=== PATIENT | male | born 1990 | race Caucasian/White ===

== ENCOUNTER → 2016-11-12 | Outpatient (REF) | payer OTHER | LOC: M SMT 17:01 | PROVIDERS: ATTEND Nurse Practitioner Women's Health | DX: R39.12 Poor urinary stream (principal) ==

== ENCOUNTER → 2017-01-02 | Outpatient (CLI) | payer OTHER ==
--- NOTE | 2017-01-02 16:22 | REP ---
Scrotal ultrasound, stat request for left testicular pain: There are no comparison studies. The testes are normal size. The right testis measures 4.6 x 2.3 x 3.1 cm. The left testis measures 4.2 x 2.2 x 3.0 cm. The testicular parenchyma is homogeneous bilaterally. There are no testicular masses. There is vascular flow in both testes with the Doppler resistive index of the intraparenchymal arteries on the right measuring 0.58 on the left 0.45. The right epididymal head measures 11 mm and left epididymal head measures 10 mm. These are normal size. No epididymal head cysts are identified. With Doppler and color Doppler ultrasound bilateral varicoceles are identified. There are no hydroceles. Impression: Bilateral varicoceles. No testicular masses. There is vascular flow in both testes. No hydrocele. Right and left epididymi are unremarkable. Signed by Ronnell Mustafa MD 01/02/2017 04:13 P
== END ==
LOC: M RAD 15:38
PROVIDERS: ATTEND Physician Assistant
DX: N50.812 Left testicular pain (principal)

== ENCOUNTER → 2017-01-04 | Outpatient (REF) | payer OTHER | LOC: M LAB REF 12:10 | PROVIDERS: ATTEND Physician Assistant | DX: R30.0 Dysuria (principal) ==

== ENCOUNTER 2017-03-22 02:47 | Inpatient (IN) | payer OTHER ==
[2017-03-22] VITALS (29 sets, daily range): BP systolic 94–141; BP diastolic 50–78; O2SAT 98
[~2017-03-22] VITALS: Ht 177.8 cm; Wt 140.7 kg
[2017-03-22] MEDS ORDERED: MIDAZOLAM INJ 5 MG/ML VIAL (J2250) As Ordered ONE ×5 (02:59→04:21)
[2017-03-22] MEDS ORDERED: ETOMIDATE INJ 20MG/10ML VIAL IV STA (03:00)
[2017-03-22] MEDS ORDERED: SUCCINYLCHOLINE INJ 200 MG/10 ML VIAL (J0330) IV STA (03:00)
[2017-03-22] MEDS ORDERED: MIDAZOLAM INJ 2 MG/2 ML VIAL (J2250) IV STA ×5 (03:05→04:23)
[2017-03-22] MEDS ORDERED: CHARCOAL ACTIVATED LIQUID 25 GM/120 ML BTL PO ONE (03:15)
[2017-03-22] MEDS ORDERED: MIDAZOLAM HCL 100 MG in D5W 80 ML IV SCH ×2 (03:15→06:30)
[2017-03-22] MEDS ORDERED: NS 1,000 ML IV ONE (03:15)
[2017-03-22] MEDS ORDERED: MIDAZOLAM HCL 50 MG in D5W 40 ML IV SCH (03:15)
[2017-03-22 03:18] LABS: MEAN CORPUSCULAR HEMOGLOBIN 29.2 pg (27.0-33.0); MEAN CORPUSCULAR VOLUME 83.4 fl (80.0-96.0); PLATELET COUNT, AUTOMATED 265 k/mm3 (150-450); RED CELL DISTRIBUTION WIDTH 12.6 % (11.5-14.5); WHITE BLOOD COUNT 11.6 K/mm3 (4.0-10.0)
[2017-03-22 03:19] LABS: BASO % 0.3 % (0.0-1.0); EOS % 0.4 % (0.0-3.0); LARGE UNSTAINED CELL # 0.2 K/mm3 (0.0-0.4); LARGE UNSTAINED CELL % 1.7 % (0.0-4.0); LYMPH # 1.9 K/mm3 (1.5-6.5); MONO # 0.6 K/mm3 (0.0-0.8); MONO % 5.4 % (0.0-5.0); NEUTROPHILS # 8.8 K/mm3 (1.8-7.7); NEUTROPHILS % 76.2 % (36.0-66.0)
[2017-03-22] MEDS ORDERED: FUROSEMIDE 100 MG/10 ML VIAL (J1940) IV ONE (03:30)
[2017-03-22] MEDS ORDERED: VECURONIUM BROMIDE 10 MG VIAL IV STA ×3 (03:40→06:23)
[2017-03-22] MEDS: MIDAZOLAM HCL 100 MG in D5W 80 ML IV SCH ×2 (03:46→05:55)
[2017-03-22 03:50] LABS: ALBUMIN 4.1 GM/DL (3.2-5.2); ALBUMIN/GLOBULIN RATIO 1.14 (1.00-1.93); ALKALINE PHOSPHATASE 69 U/L (45-117); ALT/SGPT 28 U/L (12-78); ANION GAP 14 MEQ/L (8-16); AST/SGOT 13 U/L (15-37); BILIRUBIN,DIRECT < 0.1 MG/DL (0.0-0.2); BILIRUBIN,TOTAL 0.5 MG/DL (0.2-1.0); BLOOD UREA NITROGEN 14 MG/DL (7-18); CALCIUM LEVEL 8.7 MG/DL (8.5-10.1); CARBON DIOXIDE LEVEL 22 MEQ/L (21-32); CHLORIDE LEVEL 98 MEQ/L (98-107); CREATININE FOR GFR 1.02 MG/DL (0.70-1.30); GLOMERULAR FILTRATION RATE > 60.0 (>60); GLUCOSE, FASTING 368 MG/DL (70-105); SODIUM LEVEL 134 MEQ/L (136-145); TOTAL PROTEIN 7.7 GM/DL (6.4-8.2)
[2017-03-22 04:08] LABS: ABG BASE EXCESS -5.2 (-2.0-2.0); ABG HCO3 24.4 MEQ/L (22.0-26.0); ABG STANDARD HCO3 20.3 MEQ/L (22.0-26.0); ABG TOTAL CO2 26.4 MEQ/L (22.0-29.0)
[2017-03-22 04:11] LABS: ABG PARTIAL PRESSURE CO2 64.4 mmHg (35.0-45.0); ABG pH (ARTERIAL) 7.197 UNITS (7.350-7.450)
[2017-03-22] MEDS ORDERED: VECURONIUM BROMIDE 10 MG VIAL As Ordered ONE (04:48)
[2017-03-22 05:53] LABS: ABG BASE EXCESS -6.3 (-2.0-2.0); ABG HCO3 20.5 MEQ/L (22.0-26.0); ABG PARTIAL PRESSURE CO2 45.3 mmHg (35.0-45.0); ABG PARTIAL PRESSURE O2 119.9 mmHg (75.0-100.0); ABG STANDARD HCO3 19.4 MEQ/L (22.0-26.0); ABG TOTAL CO2 21.9 MEQ/L (22.0-29.0); ABG pH (ARTERIAL) 7.274 UNITS (7.350-7.450)
[2017-03-22] MEDS ORDERED: GLUCOSE 4 GM CHEW TABLET PO PRN (06:00)
[2017-03-22] MEDS ORDERED: DEXTROSE 50% 50 ML SYRINGE IV PRN (06:00)
[2017-03-22] MEDS ORDERED: GLUCAGON FOR INJ 1 MG VIAL (J1610) SC PRN (06:00)
[2017-03-22] MEDS ORDERED: MIDAZOLAM INJ 2 MG/2 ML VIAL (J2250) IV PRN (06:00)
[2017-03-22] MEDS ORDERED: MORPHINE 2 MG/ML 1ML SYRINGE IV PRN (06:00)
[2017-03-22 06:36] LABS: METHADONE URINE NEGATIVE (NEGATIVE)
[2017-03-22] MEDS: PROPOFOL 1,000 MG in APPROPRIATE DILUENT 1 EA IV SCH ×12 (07:15→23:50)
[2017-03-22] MEDS: NS 1,000 ML IV SCH ×2 (07:16→21:01)
[2017-03-22] MEDS: HEPARIN SOD (PORCINE) 5000 UNITS/ML VIAL SC SCH ×3 (07:24→21:01)
[2017-03-22] MEDS: HumaLOG INSULIN (NovoLOG) PER UNIT SC SCH ×3 (07:24→18:05)
--- NOTE | 2017-03-22 07:42 | ECGEPIP ---
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
[2017-03-22 07:45] LABS: ABG BASE EXCESS -3.8 (-2.0-2.0); ABG HCO3 21.8 MEQ/L (22.0-26.0); ABG PARTIAL PRESSURE CO2 41.6 mmHg (35.0-45.0); ABG PARTIAL PRESSURE O2 150.8 mmHg (75.0-100.0); ABG STANDARD HCO3 21.4 MEQ/L (22.0-26.0); ABG TOTAL CO2 23.1 MEQ/L (22.0-29.0); ABG pH (ARTERIAL) 7.337 UNITS (7.350-7.450)
--- NOTE | 2017-03-22 07:49 | REP ---
Clinical: Endotracheal tube placement . Comparison: None . Findings: The mediastinum and cardiac silhouette are stable and within normal limits for portable technique. Endotracheal tube approximately 2.5 cm above the jovana. Nasogastric tube courses below left hemidiaphragm. The lung palacio are clear without acute consolidation, effusion, or pneumothorax. Skeletal structures are intact. Impression: No acute cardiopulmonary process appreciated. Signed by Shawn Elias MD 03/22/2017 07:41 A
[2017-03-22] MEDS: PANTOPRAZOLE 40MG INJ (PROTONIX) (C9113) IV SCH (08:42)
[2017-03-22] MEDS: CHLORHEXIDINE GLUCONATE 0.12 % 15ML UDC (PERIDEX ORAL RINSE) MT SCH ×2 (08:43→21:01)
[2017-03-22] MEDS ORDERED: SUCCINYLCHOLINE 100 MG/5 ML SYRINGE (J0330) ONE (09:32)
--- NOTE | 2017-03-22 09:51 | HPE ---
HISTORY AND PHYSICAL/CRITICAL CARE NOTE: DATE OF ADMISSION: 03/22/2017 at 06:00 a.m. I was called to the emergency department to evaluate this 26-year-old male who has ingested an unknown substance and suffered an overdose. He was brought by emergency medical services (EMS). It is unclear how he was found or by whom. On arrival to the emergency department assessment was performed and he was found obtunded with ineffective respiratory efforts. An endotracheal tube was placed and he required large doses of sedation and paralytics to achieve control of waxing and waning between obtundation and violent motor activity. This history according to the emergency room (ER) nursing. I spoke with his mother at bedside. He reported to her ingesting Ecstasy (MDMA) . He had been expressing depression and been speaking about suicide. She last saw him at 10-o'clock in the morning on 03/21/2017 and believes that he took the medication after that time. His only past medical history that she is aware of his diabetes mellitus and the patient follows with [facility] at the [facility]. On my arrival, the patient has been intubated and given large doses of sedation and benzodiazepine as well as paralytics and a dose of Lasix. He has also received a dose of activated charcoal and an endotracheal tube and orogastric tube have been placed. At bedside he is diaphoretic sedate, mechanically ventilated, temperature is 99.2, pulse rate 140, respirations 16/16 delivered, blood pressure 144/91. HEENT: His pupils are 4-6 mm bilaterally and reactive. He is diaphoretic. There is an endotracheal tube at 23 cm. Orogastric tube is in place. Heart: Sounds are regular. Rapid. Breath sounds are coarse clear. Abdomen is soft and obese. Extremities: Pulses are appreciable times four. There is some spasticity of the lower extremities. Difficult to assess given the medications he has received. Extensive diagnostic studies were reviewed. His white cell count is 11.6, hemoglobin 16, hematocrit 45, platelet count 265,000. Differential white cell count shows 76.2% neutrophils, 16 lymphocytes. Initial blood gas was obtained, which is felt to be venous, pH was 7.19, pCO2 64, pO2 was not reported. Subsequent arterial blood gas shows a pH of 7.27, [id number], pO2 119. Electrolytes were sodium 134, potassium 4.0, chloride 98, CO2 22, BUN 14, creatinine 1.02. Serum glucose is 368, calcium is 8.7 on an albumin of 4.1, bilirubin 0.5, AST 13 , ALT 28, CPK 107. TSH was performed and is 0.75. Urine toxicology showed salicylates 2.6 low, acetaminophen 2.0 low and Ethyl alcohol less than 0.003. Remaining screen at this point is pending. I have reviewed the chest x-ray image, there is no report at this time. He does show an elevation of the right hemidiaphragm. Endotracheal tube and oral gastric tube appear to be in good position. There are no obvious infiltrates. The primary problem requiring critical attention is substance overdose, possible suicide attempt. The toxidrome is consistent with MDMA and possible serotonin syndrome - neuromuscular and blood pressure abnormalities have responded to high-dose benzodiazepines and paralytics. His serum sodium is slightly low. Will continue to closely follow his liver enzymes and coagulation studies. Acute respiratory failure. Will initiate mechanical ventilation and target a pH of better than 7.3. Repeat arterial blood gases are pending. Hyperglycemia. Will begin with fingerstick blood sugars and coverage. The patient is likely to require some long-acting insulin given his underlying diabetic state. DVT prophylaxis will be addressed with sequential hose and subcutaneous heparin. Ulcer prophylaxis is felt to be appropriate . Given his risks, I will initiate Protonix. I reviewed the case with the emergency room physician as well as the patient's mother at bedside. Will facilitate his transfer to the intensive care unit at this point and I will update the nursing staff there. His condition is critical. Prognosis is guarded. 1 hour and 37 minutes was spent in the provision of bedside critical care and coordination. Edited: [email or web address] 03/25/2017 1024 MTDD
--- NOTE | 2017-03-22 10:03 | RO ---
DATE OF PROCEDURE: 03/22/2017 PREOPERATIVE DIAGNOSIS: Hypovolemia. POSTOPERATIVE DIAGNOSIS: Hypovolemia. PROCEDURE PERFORMED: Right subclavian CVP placement. SURGEON: Damir Myers DO COURTESY CLERK: ANESTHESIA: DESCRIPTION OF PROCEDURE: The patient was seen in the intensive care unit intubated, mechanically ventilated, critically ill. The procedure was reviewed with the patient's family at bedside including indications, contraindications, risks and potential benefits. An informed consent was obtained and placed in the chart. The patient was placed in the supine position. The skin overlying the right subclavian vein was prepped with Chloraprep, draped in a sterile fashion. A 25-gauge needle was used to raise a skin wheal of 1% lidocaine. Thereafter, a 17-gauge introducer needle was placed in through the skin and into the right subclavian vein. Venous blood was obtained. Vascular tip guidewire was advanced. A small incision made adjacent to the guidewire and a triple-lumen catheter placed over the guidewire to a distance of 18 cm. The catheter was sewn in place and a sterile dressing applied. A postprocedure chest x-ray is pending. There were no apparent complications.
--- NOTE | 2017-03-22 10:14 | REP ---
Clinical: line placement. Comparison: 03/22/2017. Findings: ETT and NGT in satisfactory position. Right subclavian catheter in the SVC. The mediastinum and cardiac silhouette are stable and within normal limits for portable technique. The lung palacio are clear without acute consolidation, effusion, or pneumothorax. Skeletal structures are intact. Impression: Lines and tubes in satisfactory position. No acute cardiopulmonary process appreciated. Signed by Shawn Elias MD 03/22/2017 10:05 A
--- NOTE | 2017-03-22 12:19 | RO ---
DATE OF PROCEDURE: 03/22/2017 TIME: 10:20 a.m. PREOPERATIVE DIAGNOSIS: Hypoxia. POSTOPERATIVE DIAGNOSIS: PROCEDURE: Arterial line placement. SURGEON/RESIDENT DOCTOR: Izaiah Lemus DO VEGETABLE SPECKER/ATTENDING DOCTOR: Damir Myers DO ANESTHESIA: Procedure was discussed with the patient's mother and two sisters. Written consent was obtained. The patient's mother and sisters were aware of the risks and benefits of the procedure. After a time out was completed verifying the correct patient, procedure and site position, eliseo's test was performed to ensure adequate perfusion. The patient's left wrist was prepped and draped in a sterile fashion. 1% lidocaine was used to anesthetize the area. An 18 gauge arterial line was introduced into the left radial artery. The catheter was threaded over Guidewire through Seldinger's procedure. The needle was removed and appropriate pulsatile blood returned. The catheter was then sutured in place to the skin and a sterile dressing applied. Perfusion to the extremity distal to the point of catheter insertion was checked and found to be adequate. Dr. Myers was present for the entire procedure. ESTIMATED BLOOD LOSS: Minimal. Patient tolerated the procedure well and there were no complications, condition was unchanged following the procedure. . MTDD
[2017-03-22 13:18] LABS: ALBUMIN 3.5 GM/DL (3.2-5.2); ANION GAP 10 MEQ/L (8-16); BLOOD UREA NITROGEN 12 MG/DL (7-18); CALCIUM LEVEL 8.3 MG/DL (8.5-10.1); CARBON DIOXIDE LEVEL 25 MEQ/L (21-32); CHLORIDE LEVEL 105 MEQ/L (98-107); CREATININE FOR GFR 0.92 MG/DL (0.70-1.30); GLOMERULAR FILTRATION RATE > 60.0 (>60); GLUCOSE, FASTING 327 MG/DL (70-105); POTASSIUM SERUM 4.3 MEQ/L (3.5-5.1); SODIUM LEVEL 140 MEQ/L (136-145)
[2017-03-22 19:36] LABS: ALBUMIN 3.6 GM/DL (3.2-5.2); ALKALINE PHOSPHATASE 52 U/L (45-117); ALT/SGPT 29 U/L (12-78); ANION GAP 11 MEQ/L (8-16); AST/SGOT 19 U/L (15-37); BILIRUBIN,TOTAL 0.5 MG/DL (0.2-1.0); BLOOD UREA NITROGEN 9 MG/DL (7-18); CARBON DIOXIDE LEVEL 24 MEQ/L (21-32); CHLORIDE LEVEL 106 MEQ/L (98-107); CHOLESTEROL LEVEL 241 MG/DL (< 200); CREATININE FOR GFR 0.88 MG/DL (0.70-1.30); GLOMERULAR FILTRATION RATE > 60.0 (>60); GLUCOSE, FASTING 276 MG/DL (70-105); PHOSPHORUS LEVEL 3.3 MG/DL (2.5-4.9); POTASSIUM SERUM 3.9 MEQ/L (3.5-5.1); SODIUM LEVEL 141 MEQ/L (136-145); TOTAL PROTEIN 6.6 GM/DL (6.4-8.2); TRIGLYCERIDES LEVEL 933 MG/DL (<150)
[2017-03-23] VITALS (27 sets, daily range): BP systolic 78–195; BP diastolic 35–99; O2SAT 97
[2017-03-23] MEDS: HumaLOG INSULIN (NovoLOG) PER UNIT SC SCH ×4 (01:04→17:46)
[2017-03-23] MEDS: PROPOFOL 1,000 MG in APPROPRIATE DILUENT 1 EA IV SCH ×4 (01:17→07:00)
[2017-03-23 05:41] LABS: BASO % 0.4 % (0.0-1.0); EOS # 0.2 K/mm3 (0.0-0.50); EOS % 2.5 % (0.0-3.0); LARGE UNSTAINED CELL # 0.1 K/mm3 (0.0-0.4); LARGE UNSTAINED CELL % 1.2 % (0.0-4.0); LYMPH # 1.8 K/mm3 (1.5-6.5); LYMPH % 20.6 % (24.0-44.0); MEAN CORPUSCULAR HEMOGLOBIN 29.8 pg (27.0-33.0); MEAN CORPUSCULAR HGB CONC 35.2 g/dl (32.0-36.5); MEAN CORPUSCULAR VOLUME 84.7 fl (80.0-96.0); MONO # 0.5 K/mm3 (0.0-0.8); NEUTROPHILS # 5.7 K/mm3 (1.8-7.7); NEUTROPHILS % 69.2 % (36.0-66.0); PLATELET COUNT, AUTOMATED 225 k/mm3 (150-450); RED CELL DISTRIBUTION WIDTH 12.6 % (11.5-14.5); WHITE BLOOD COUNT 8.3 K/mm3 (4.0-10.0)
[2017-03-23 05:50] LABS: INR 1.06
[2017-03-23 05:56] LABS: ALBUMIN 3.4 GM/DL (3.2-5.2); ALKALINE PHOSPHATASE 49 U/L (45-117); ALT/SGPT 28 U/L (12-78); ANION GAP 8 MEQ/L (8-16); AST/SGOT 19 U/L (15-37); BILIRUBIN,TOTAL 0.6 MG/DL (0.2-1.0); BLOOD UREA NITROGEN 7 MG/DL (7-18); CALCIUM LEVEL 7.9 MG/DL (8.5-10.1); CARBON DIOXIDE LEVEL 27 MEQ/L (21-32); CHLORIDE LEVEL 107 MEQ/L (98-107); CHOLESTEROL LEVEL 231 MG/DL (< 200); CREATININE FOR GFR 0.72 MG/DL (0.70-1.30); GLOMERULAR FILTRATION RATE > 60.0 (>60); GLUCOSE, FASTING 217 MG/DL (70-105); PHOSPHORUS LEVEL 2.7 MG/DL (2.5-4.9); POTASSIUM SERUM 3.6 MEQ/L (3.5-5.1); SODIUM LEVEL 142 MEQ/L (136-145); TOTAL PROTEIN 6.5 GM/DL (6.4-8.2); TRIGLYCERIDES LEVEL 865 MG/DL (<150)
[2017-03-23] MEDS: HEPARIN SOD (PORCINE) 5000 UNITS/ML VIAL SC SCH ×3 (06:04→21:44)
[2017-03-23 06:08] LABS: ABG BASE EXCESS 1.4 (-2.0-2.0); ABG HCO3 27.1 MEQ/L (22.0-26.0); ABG PARTIAL PRESSURE CO2 46.8 mmHg (35.0-45.0); ABG PARTIAL PRESSURE O2 82.9 mmHg (75.0-100.0); ABG STANDARD HCO3 25.7 MEQ/L (22.0-26.0); ABG TOTAL CO2 28.5 MEQ/L (22.0-29.0)
--- NOTE | 2017-03-23 07:12 | REP ---
Clinical: Endotracheal tube positioning. Comparison: 03/22/2017. Findings: Endotracheal tube is approximately 2.2 cm above the jovana. Nasogastric tube courses below left hemidiaphragm. Right subclavian catheter with tip in the SVC. Mediastinum and cardiac silhouette are stable and within normal limits. Lung palacio are relatively clear without focal consolidation, effusion, or pneumothorax. Skeletal structures intact. Impression: Lines and tubes in satisfactory position. No acute cardiopulmonary process appreciated. Signed by Shawn Elias MD 03/23/2017 07:03 A
[2017-03-23] MEDS: PANTOPRAZOLE 40MG INJ (PROTONIX) (C9113) IV SCH (10:11)
[2017-03-23] MEDS: LEVEMIR (INSULIN DETEMIR) 1 UNITS/0.01ML SC SCH (10:12)
--- NOTE | 2017-03-23 10:12 | CCN ---
DATE: 03/23/2017 CRITICAL CARE NOTE The patient is seen in the intensive care unit, intubated, mechanically ventilated, critically ill. This is hospital day #2, intensive care unit (ICU) day #2. His temperature is 98.4, pulse rate 96, respirations 20, blood pressure 113/57. Intake and output for the past 24 hours: 1989 in and 1360 out; since midnight, 1062 in and 825 out. At bedside, he is sedate. Orogastric and endotracheal tubes are in good position. Neck is supple. No meningismus. There is a right subclavian CVP, site clean. Heart: Sounds regular without appreciable murmur. Breath sounds mildly diminished in the bases, otherwise clear. Abdomen: Soft. Extremities: No edema. Pulses times four. Left radial arterial line site clean. DIAGNOSTIC STUDIES: Chest x-ray shows tubes and lines in good position. Sodium 142, potassium 3.6, chloride 107, CO2 27, BUN 7, creatinine 0.72, glucose 217, white cell count 8.3, hemoglobin 14, hematocrit 39, platelet count 228, CPK 167, AST 19, ALT 28. PT 1 1.06, PTT 25. Arterial blood gases show a pH of 7.38, pCO2 46, pO2 82; this on assist control mode of ventilation, 440 tidal volume, rate 16, PEEP of 5, FiO2 0.4. On medications review, he is receiving propofol infusion, subcutaneous heparin, Protonix. The primary problem requiring critical attention is acute respiratory failure. We will perform a sedation vacation this morning and proceed toward weaning pending his response. Will also obtain ventilatory mechanics. Substance overdose. History suggests the patient consumed ecstasy (MDMA). His clinical presentation was consistent with this with features of serotonin syndrome as well. Toxicology was positive for amphetamines, benzodiazepines, cannabinoids. It is unclear whether this ingestion was part of a suicide attempt. Psychiatric evaluation will be necessary. He does not appear to have suffered any of the multiple complications of this type of ingestion. Close monitoring will continue. Glycemic control is borderline. Will continue with fingerstick blood sugars and coverage. Long-acting insulin will likely be necessary when he is given nutritional supplement. Nutritional support. If the patient does not wean, will begin tube feedings. If he does, we are going to begin a controlled diet. Deep vein thrombosis (DVT) prophylaxis is in place with subcutaneous heparin. Ulcer prophylaxis in place with proton pump inhibitor (PPI). The patient's mother is at bedside and has been updated on his condition, which remains critical. Prognosis is guarded. 58 minutes was spent in the provision of bedside critical care and coordination, exclusive of any procedure time.
[2017-03-23] MEDS: NS 1,000 ML IV SCH (12:17)
[2017-03-23] MEDS ORDERED: HumaLOG INSULIN (NovoLOG) PER UNIT SC SCH (21:00)
[2017-03-24] VITALS: BP_SYST 139; BP_SYST 181; BP_DIAS 73; BP_DIAS 92
[2017-03-24 04:00] VITALS: BP_SYST 128; BP_SYST 162; BP_DIAS 102; BP_DIAS 94
[2017-03-24] MEDS: HEPARIN SOD (PORCINE) 5000 UNITS/ML VIAL SC SCH ×2 (05:21→12:33)
[2017-03-24 05:52] LABS: BASO % 0.4 % (0.0-1.0); EOS # 0.2 K/mm3 (0.0-0.50); EOS % 2.4 % (0.0-3.0); LARGE UNSTAINED CELL # 0.1 K/mm3 (0.0-0.4); LARGE UNSTAINED CELL % 1.3 % (0.0-4.0); LYMPH # 1.6 K/mm3 (1.5-6.5); LYMPH % 20.3 % (24.0-44.0); MEAN CORPUSCULAR HEMOGLOBIN 29.7 pg (27.0-33.0); MEAN CORPUSCULAR HGB CONC 35.5 g/dl (32.0-36.5); MEAN CORPUSCULAR VOLUME 83.5 fl (80.0-96.0); MONO # 0.4 K/mm3 (0.0-0.8); NEUTROPHILS % 69.6 % (36.0-66.0); PLATELET COUNT, AUTOMATED 193 k/mm3 (150-450); RED CELL DISTRIBUTION WIDTH 12.4 % (11.5-14.5); WHITE BLOOD COUNT 7.2 K/mm3 (4.0-10.0)
[2017-03-24 05:54] LABS: INR 0.99
[2017-03-24 06:03] LABS: ABG BASE EXCESS -1.8 (-2.0-2.0); ABG HCO3 21.5 MEQ/L (22.0-26.0); ABG PARTIAL PRESSURE CO2 32.3 mmHg (35.0-45.0); ABG PARTIAL PRESSURE O2 100.7 mmHg (75.0-100.0); ABG TOTAL CO2 22.5 MEQ/L (22.0-29.0); ABG pH (ARTERIAL) 7.441 UNITS (7.350-7.450)
[2017-03-24 06:23] LABS: ALBUMIN 2.9 GM/DL (3.2-5.2); ALBUMIN/GLOBULIN RATIO 0.94 (1.00-1.93); ALKALINE PHOSPHATASE 51 U/L (45-117); ALT/SGPT 22 U/L (12-78); ANION GAP 7 MEQ/L (8-16); AST/SGOT 16 U/L (15-37); BILIRUBIN,TOTAL 0.7 MG/DL (0.2-1.0); BLOOD UREA NITROGEN 7 MG/DL (7-18); CALCIUM LEVEL 7.7 MG/DL (8.5-10.1); CARBON DIOXIDE LEVEL 27 MEQ/L (21-32); CHLORIDE LEVEL 104 MEQ/L (98-107); CHOLESTEROL LEVEL 196 MG/DL (< 200); CREATININE FOR GFR 0.59 MG/DL (0.70-1.30); GLOMERULAR FILTRATION RATE > 60.0 (>60); GLUCOSE, FASTING 198 MG/DL (70-105); PHOSPHORUS LEVEL 3.1 MG/DL (2.5-4.9); POTASSIUM SERUM 3.4 MEQ/L (3.5-5.1); SODIUM LEVEL 138 MEQ/L (136-145); TRIGLYCERIDES LEVEL 620 MG/DL (<150)
[2017-03-24 07:45] VITALS: BP 125/118
[2017-03-24 08:00] VITALS: BP 128/120
[2017-03-24 08:05] VITALS: BP_SYST 122; BP_SYST 138; BP_DIAS 113; BP_DIAS 74
[2017-03-24] MEDS: PANTOPRAZOLE 40MG INJ (PROTONIX) (C9113) IV SCH (08:14)
[2017-03-24] MEDS: NS 1,000 ML IV SCH (08:14)
[2017-03-24] MEDS: LEVEMIR (INSULIN DETEMIR) 1 UNITS/0.01ML SC SCH (08:14)
[2017-03-24] MEDS: HumaLOG INSULIN (NovoLOG) PER UNIT SC SCH ×2 (08:15→12:33)
--- NOTE | 2017-03-24 08:47 | REP ---
Clinical: Status post extubation. Comparison: 03/23/2017. Findings: Endotracheal tube and nasogastric tube have been removed. Right subclavian catheter with tip in the SVC remains stable. Mediastinum and cardiac silhouette unchanged and normal for portable technique. Lung palacio without focal consolidation, effusion, or pneumothorax. Skeletal structures intact. Impression: No acute cardiopulmonary process or focal consolidation appreciated. Signed by Shawn Elias MD 03/24/2017 08:34 A
[2017-03-24] MEDS ORDERED: POTASSIUM CHLORIDE 10 MEQ SR TABLET PO ONE (10:00)
[2017-03-24 10:20] LABS: T UPTAKE 37 % (33-40); THYROXINE (T4) 8.3 UG/DL (4.5-12.0)
[2017-03-24] MEDS ORDERED: INSUHUMDS SC (11:19)
[2017-03-24] MEDS ORDERED: INSUDET SC (11:19)
[2017-03-24 11:22] VITALS: BP 147/84
--- NOTE | 2017-03-24 13:49 | DSES ---
DATE OF ADMISSION: 03/22/2017 DATE OF DISCHARGE: FINAL DIAGNOSES: Depression. Substance overdose. Polysubstance abuse. Obesity. Respiratory failure secondary to substance overdose. Diabetes. PRIMARY CARE PROVIDER: Dr. Chayo Geronimo PSYCHIATRY: Dr. Tristan Cruz This is a 26-year-old male patient with underlying medical history of obesity, diabetes, presented to the emergency room for substance overdose, unclear how the patient was initially found. Arrived in the emergency room, found to be obtunded with ineffective respiratory effort. The patient subsequently was intubated. Further history taken from the patient's mother reported that the patient had ingested Ecstasy, expressing depression, speaking about suicide. The patient's mother saw the patient at 10 o'clock in the morning on 03/21/2017 and believed that he took medication after that time. The patient was intubated in the emergency department (ED), given Lasix, benzodiazepines and paralytics. Activated charcoal has also been given. HOSPITAL COURSE: The patient was admitted to the intensive care unit (ICU), initially on ventilator. After the patient's mental status improved, spontaneous trial was performed. The patient was weaned off ventilator. Urine toxicology (U tox) was positive for amphetamine, benzodiazepines, cannabinoid. Insulin was given. The patient's diet was advanced after extubation. Subsequently, the patient was transferred to hospitalist service. After the patient was awake, the case was discussed with the patient. The patient reported that he has been more and more depressed over the past 3-4 months. Subsequently has taken lots of Ecstasy in an attempt to end his life. The patient stated that there is just too much stress in life. Unable to identify any situation in particular. Subsequently, psychiatrist was consulted for patient to be transferred to inpatient mental health for further care. The patient is currently tolerating diet, comfortable. No active telemetry events. VITAL SIGNS: Temperature 97, pulse 86, respirations 18, blood pressure 122/74, pulse oximetry 95% on room air. GENERAL: Patient obese, alert and oriented times three, in no acute distress. HEENT: Normocephalic, atraumatic. PULMONARY: Bilaterally clear to auscultation. CARDIAC: Regular rate and rhythm. Normal S1, S2. ABDOMEN: Soft, nontender, positive bowel sounds. EXTREMITIES: No edema bilateral lower extremities. LABORATORY: WBC 7.2, hemoglobin and hematocrit 12.9 over 36.4, platelets 193. Chemistry: Sodium 138, potassium 3.4, chloride 104, bicarbonate 27, BUN 7, creatinine 0.59. Urine toxicology positive for amphetamine, benzodiazepines and cannabinoids. DISCHARGE MEDICATION: Continue Levemir 20 units subcutaneously daily and insulin via scale. DISCHARGE INSTRUCTIONS: Further care as per psychiatry at inpatient mental health after patient was discharged. Followup with primary care provider in 7 days after discharge for further management. Further care as per psychiatry. MTDD
--- NOTE | 2017-03-24 16:48 | CR ---
DATE OF CONSULTATION: 03/24/2017 REQUESTING PHYSICIAN: Dr. Weinstein. CHIEF COMPLAINT: "I've been feeling very depressed." HISTORY OF PRESENT ILLNESS: A 26-year-old male without prior psychiatric history except anger management at age 14. He was admitted to the intensive care unit for medical stabilization. According to the chart, he was brought to the emergency department and is unclear how he was found or by whom. He was obtunded with ineffective respiratory effort and had to be intubated. Dr. Myers was able to talk with his mother and she stated that he was talking about depression and he has possibly overdosed on 3,4 methylenedioxymethamphetamine (MDMA). I was asked to evaluate the patient for possible transfer to inpatient psychiatric care. During the interview today, the patient is calm and cooperative. Appears very depressed. The patient states that has been sad, not happy, and isolating for the last couple of weeks. Says that has not been able to sleep more than 4-5 hours, that his appetite has been changing from eating a lot to not eating at all, and that his energy has been very low. As far as triggers, the patient says that "is a combination of factors." "Things have been building up." He believed that a major problem has been the breakage of the relationship with his girlfriend of five years. During the interview, there is no evidence of psychotic symptoms. No auditory or visual hallucinations or delusions were noted. PAST MEDICAL HISTORY: The patient reports being diagnosed of diabetes and now has diagnosis of acute respiratory failure after the overdose. PAST PSYCHIATRIC HISTORY: As above. The patient denies any psychiatric diagnosis. The patient said that he was on anger management when he was around 14. FAMILY HISTORY: The patient denies any relatives suffering from a psychiatric problem. SUBSTANCE ABUSE HISTORY: The patient reports using marijuana on a daily basis. The patient denies use of MDMA; however, says that he bought it from his dealer with the intention of overdose. SOCIAL HISTORY: The patient is currently living with his mother. Says that his family is supportive. The patient was raised by his mother. He is single with no children. LABORATORIES: His CBC showed a hemoglobin of 12.9, hematocrit of 36.4. CMP showed a potassium of 3.4, glucose of 198, calcium of 7.7, and triglycerides of 620. Thyroid function test within normal limits. Urine drug screen positive for amphetamines, benzodiazepines, and cannabis. Blood alcohol level is negative. MENTAL STATUS EXAMINATION: The patient is dressed in hospital gown. Patient is cooperative. Speech is soft and monotone. Has fair eye contact. Mood is anxious and depressed. Affect is restricted. The patient is oriented to time, place, person and situation. Maintains attention and concentration fairly. Instant recall, recent and remote memory are fair. No evidence of delusions or hallucinations. The patient has suicidal thoughts. Status post overdose on MDMA. No homicidal ideation. Judgment and insight are poor. DIAGNOSES: AXIS I: Major depressive disorder. AXIS II: Deferred. AXIS III: Diabetes mellitus and status post acute respiratory failure. RECOMMENDATIONS: The patient is severely depressed. The patient has just overdosed and he required intubation. The patient will be transferred to the inpatient psychiatric unit when he is medically cleared.
== END 2017-03-24 14:46 | DRG 951 ==
LOC: M ED 02:47 → EDBD 02:47 → M ED INP 05:50 → M ICU 06:31
PROVIDERS: ADMIT Internal Medicine Pulmonary Disease; ATTEND Hospitalist
PROC: 0BH17EZ Insertion of Endotracheal Airway into Trachea, Via Natural or Artificial Opening (ICD-10-PCS; principal; 2017-03-22)
PROC: 03HC3DZ Insertion of Intraluminal Device into Left Radial Artery, Percutaneous Approach (ICD-10-PCS; 2017-03-22)
PROC: 02HV33Z Insertion of Infusion Device into Superior Vena Cava, Percutaneous Approach (ICD-10-PCS; 2017-03-22)
PROC: 5A1945Z Respiratory Ventilation, 24-96 Consecutive Hours (ICD-10-PCS; 2017-03-22)
DX: T43.622A Poisoning by amphetamines, intentional self-harm, initial encounter (principal); J96.00 Acute respiratory failure, unspecified whether with hypoxia or hypercapnia; E11.65 Type 2 diabetes mellitus with hyperglycemia; E66.9 Obesity, unspecified; F32.9 Major depressive disorder, single episode, unspecified; F12.10 Cannabis abuse, uncomplicated; Z68.41 Body mass index [BMI] 40.0-44.9, adult

== ENCOUNTER 2017-03-24 13:51 | Inpatient (IN) | payer OTHER ==
[~2017-03-24 13:51] MED LIST: INSUDET SC; INSUHUMDS SC
[2017-03-24 16:09] VITALS: BP 160/100
[2017-03-24] MEDS ORDERED: chlordiazePOXIDE 25 MG CAP PO STA (16:17)
[2017-03-24] MEDS ORDERED: GLUCOSE 4 GM CHEW TABLET PO PRN (16:30)
[2017-03-24] MEDS ORDERED: ACETAMINOPHEN TAB 650MG DOSE (2X325MG) PO PRN (16:30)
[2017-03-24] MEDS ORDERED: DEXTROSE 50% 50 ML SYRINGE IV PRN (16:30)
[2017-03-24] MEDS ORDERED: GLUCAGON FOR INJ 1 MG VIAL (J1610) SC PRN (16:30)
[2017-03-24] MEDS ORDERED: MAALOX 30 ML SUSP *UDC PO PRN (16:30)
[2017-03-24] MEDS ORDERED: MOM 30ML SUSPENSION UDC PO PRN (16:30)
[2017-03-24] MEDS: HumaLOG INSULIN (NovoLOG) PER UNIT SC SCH ×2 (17:10→21:40)
[2017-03-24] MEDS ORDERED: CEPACOL LOZENGE PO PRN (17:15)
[2017-03-24] MEDS ORDERED: chlordiazePOXIDE 25 MG CAP PO PRN (17:30)
[2017-03-24 17:32] VITALS: BP 144/82
[2017-03-25 06:32] VITALS: BP 162/89
[2017-03-25] MEDS: HumaLOG INSULIN (NovoLOG) PER UNIT SC SCH ×4 (06:44→21:00)
[2017-03-25 07:28] LABS: ANION GAP 8 MEQ/L (8-16); BLOOD UREA NITROGEN 8 MG/DL (7-18); CALCIUM LEVEL 8.3 MG/DL (8.5-10.1); CARBON DIOXIDE LEVEL 27 MEQ/L (21-32); CHLORIDE LEVEL 104 MEQ/L (98-107); CREATININE FOR GFR 0.58 MG/DL (0.70-1.30); GLOMERULAR FILTRATION RATE > 60.0 (>60); GLUCOSE, FASTING 277 MG/DL (70-105); POTASSIUM SERUM 4.1 MEQ/L (3.5-5.1); SODIUM LEVEL 139 MEQ/L (136-145)
--- NOTE | 2017-03-25 08:20 | HPE ---
DATE OF ADMISSION: 03/24/2017 HISTORY OF PRESENT ILLNESS: Please refer to psychiatric history and evaluation for further details on this admission. This examination and history is intended for medical issues, which may need treatment, followup or consult on this 26-year-old male who was transferred from the intensive care unit (ICU) after having been stabilized, having overdosed on ecstasy. Had required intubation, ventilation. Has been extubated, is doing well, stabilized, and transferred to the mental health unit. ALLERGIES: No known drug allergies. PRIMARY CARE PROVIDER: Dr. Chayo Geronimo at [facility] in [place]. SOCIAL HISTORY: He is single. He lives with his mother. Ethyl alcohol (EtOH) none. Smoking, he states he quit approximately one month ago. Recreational drug use marijuana. He states he took the ecstasy simply for an overdose suicide attempt. PAST MEDICAL HISTORY: 1. Insulin-dependent diabetes type 2. He follows with Dr. Waters in [place]. 2. Polysubstance abuse. 3. Depression. PAST SURGICAL HISTORY: Tear duct surgery 1998. HOME MEDICATIONS: - Toujeo 30 units subcutaneous at bedtime - metformin 1000 mg by mouth twice a day with a meal TOXICOLOGY: Urine was positive for amphetamines, benzodiazepines, and cannabinoids in the emergency room when he was tested. FAMILY HISTORY: Father has diabetes, hypertension. Mother hypertension. REVIEW OF SYSTEMS: 10-systems review was done, and was unremarkable. He had no nausea or vomiting. He had no difficulty swallowing or respiratory. His throat was not sore. 10-systems review was essentially unremarkable. PHYSICAL EXAMINATION: A 26-year-old obese male in no acute distress. VITAL SIGNS: Height 5 feet 9 inches, weight 139.4 kg. Blood pressure 144/82, pulse 96, respirations 16, temperature 97.6. The patient is alert and oriented times three. GENERAL: The patient is alert and oriented times three. HEENT: Pupils equal and react to light. Extraocular movement (EOM) intact. Sclerae clear. Conjunctivae normal. No facial asymmetry. Pharynx, tongue, gums pink and moist. Tongue is midline. NECK: Supple without lymphadenopathy. No thyromegaly. No goiter. Carotids 2+ without bruits. CHEST: Clear to auscultation without wheeze or retraction. HEART: Regular. ABDOMEN: Benign. Bowel sounds are positive. GENITOURINARY/RECTAL: Not done. EXTREMITIES: No cyanosis, clubbing or edema. Gait steady. Peripheral pulses equal and palpable bilaterally. SKIN: Warm and dry. IMPRESSION AND PLAN: Psychiatric plan per psychiatry. Insulin-dependent diabetes type 2. Continue Levemir. The hospital does not carry Toujeo, which is a concentrated insulin, but unit for unit are the same. We will utilize Levemir here. Fingerstick blood sugar before meals and at bedtime with coverage as needed. Short-acting insulin. Consistent carbohydrate diet. Fingerstick blood sugars with sliding scale insulin. No acute medical issues.
[2017-03-25] MEDS: LEVEMIR (INSULIN DETEMIR) 1 UNITS/0.01ML SC SCH (08:58)
[2017-03-25] MEDS: SERTRALINE HCL 50 MG TAB PO SCH (11:53)
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
[2017-03-25 18:13] VITALS: BP 162/92
[2017-03-25] MEDS: traZODone 50 MG TAB PO PRN (22:32)
[2017-03-26 06:21] VITALS: BP 138/84
[2017-03-26] MEDS: HumaLOG INSULIN (NovoLOG) PER UNIT SC SCH ×4 (07:00→21:00)
[2017-03-26] MEDS: LEVEMIR (INSULIN DETEMIR) 1 UNITS/0.01ML SC SCH (08:47)
[2017-03-26] MEDS: SERTRALINE HCL 50 MG TAB PO SCH (08:47)
--- NOTE | 2017-03-26 10:08 | MHIPNPDOC ---
[facility] Progress Note Progress Note DATE OF SERVICE: 03/26/17 HISTORY: Patient is a 26-year-old male, who overdosed on ecstasy on March 22 after a relationship breakup with his girlfriend, with whom he had a relationship for 5-1/2 years. This breakup to place since November this year but as he processed the loss he became increasingly depressed and impulsively decided to overdose on ecstasy. He texted his mother and left her a voice message saying "I think I'm overdosing" ,he was rushed to the emergency room, admitted to the ICU and then he was transferred to the inpatient mental health unit to treat his depression. [employer] met with patient today to assess treatment progress on inpatient unit. Patient was observed to be lying in bed reading a book, required prompting to put the book down to meet with customs entry writer for assessment purposes. Patient remained lying in bed, did not sit up, responded to questions but made poor eye contact and provided limited information in his responses. Patient reported improvement to symptoms of anxiety and depression, denied suicidal and homicidal ideation, denied auditory and visual hallucinations, and denied urge to engage in self- injurious behavior. Patient asked when he would be discharged, indicated he felt ready to leave hospital, informed customs entry writer he is sleeping well with utilization of trazodone and feels that Zoloft is effective in reducing symptoms of anxiety and depression. Patient denied medication side effects. Patient stated energy level, concentration and focus have improved, and indicated his appetite is stable. Patient denies symptoms of physical pain and presented with no signs of acute distress at time of interaction. VITALS: See below NEW TEST RESULTS: No new results MEDICAL/SURGICAL HISTORY: Insulin-dependent diabetes mellitus. CURRENT MEDICATIONS: See below MENTAL STATUS EXAMINATION: General appearance: Patient is a 26-year old male, who is observed to be lying in bed, mixed limited eye contact, provides minimal information in his responses to assessment questions, presents with adequate personal hygiene, is dressed in hospital clothing, appears stated age Speech: Intact. Thought processes: Linear, logical, goal-directed Thought content: Rational, logical, no tangentiality or paranoia noted Abstract reasoning and computation: Fair. Description of associations: Intact Description of abnormal or psychotic thoughts: No suicidal or homicidal ideation , denies auditory or visual hallucinations, does not appear to be responding to internal stimuli, does not endorse bizarre or paranoid ideation, denies preoccupation with violence Judgment: Poor. Insight: Poor. Orientation: A and O 3 Recent and remote memory: Intact. Attention span and concentration: Fair. Fund of knowledge: Fair. Mood: "I'm okay today, feeling better." No mood lability noted Affect: Blunted DIAGNOSES: Unspecified depressive disorder, marijuana use disorder. Rule out substance-induced mood disorder. ASSESSMENT: Patient appears to be adjusting to unit, is visible on unit at times , isolates to room at other times, has presented with no behavior management challenges. Patient indicates Zoloft is helping to reduce symptoms of anxiety and depression, indicates trazodone is effective for addressing symptoms of insomnia. Patient denies medication side effects and denies symptoms of craving or withdrawal. Will continue to monitor for symptoms of serotonin syndrome, patient denies sweating, tremor, diarrhea, muscle rigidity, seizure, agitation or restlessness, confusion, fever, and no dilation to pupils noted at time of interaction. Will continue to monitor patient's response to medications and for medication side effects, and will evaluate patient safety, resolution of suicidal ideation, and discharge readiness. 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 MANAGEMENT PLAN: Continue Zoloft 50 mg po q am and trazodone 50 mg q hs PRN insomnia Maintain safety precautions Patient to attend groups and participate in unit programming to develop coping strategies Engage patient in discharge planning process and arrange meeting with support system to ensure safe discharge planning when appropriate Patient to follow up with PCM upon discharge TIME SPENT: 25 minutes Vital Signs Vital Signs Date Time Temp Pulse Resp B/P (MAP) Pulse Ox O2 Delivery O2 Flow Rate FiO2 03/26/17 06:21 99.1 69 16 138/84 (102) 03/24/17 16:09 93 Room Air Laboratory Data 24H Labs Laboratory Tests 2 03/25/17 11:50: Bedside Glucose (Misc Panel) 238H 03/25/17 17:04: Bedside Glucose (Misc Panel) 263H 03/25/17 22:22: Bedside Glucose (Misc Panel) 196H 03/26/17 06:55: Bedside Glucose (Misc Panel) 208H Current Medications Current Medications Acetaminophen (Tylenol Tab) 650 mg Q6HP PRN PO HEADACHE or DISCOMFORT; Start at 16:30; Stop 04/23/17 at 16:29 Al Hydrox/Mg Hydrox/Simethicone (Mylanta) 30 ml Q4HP PRN PO HEARTBURN/ INDIGESTION; Start 03/24/17 at 16:30; Stop 04/23/17 at 16:29 Cetylpyridinium Chloride (Cepacol) 1 gregg Q4HP PRN PO SORE THROAT; Start at 17:15; Stop 04/23/17 at 17:14 Chlordiazepoxide (Librium) 25 mg STAT STAT PO Last administered on 03/24/17 16 :21; Start 03/24/17 at 16:17; Stop 03/24/17 at 16:19; Status DC Chlordiazepoxide (Librium) 25 mg TIDP PRN PO SEE LABEL COMMENTS; Start 03/24/17 at 17:30; Stop 03/25/17 at 17:30; Status DC Dextrose (Dextrose 50%) 25 ml ASDIRECTED PRN IV SEE LABEL COMMENTS; Start at 16:30; Stop 04/23/17 at 16:29 Glucagon (Glucagon) 1 mg ASDIRECTED PRN SC SEE LABEL COMMENTS; Start 03/24/17 at 16:30; Stop 04/23/17 at 16:29 Glucose (Glucose) 16 GM ASDIRECTED PRN PO SEE LABEL COMMENTS; Start 03/24/17 at 16:30; Stop 04/23/17 at 16:29 Insulin Detemir (Levemir Insulin) 20 units QAM SC Last administered on 08:47; Start 03/25/17 at 09:00; Stop 04/24/17 at 08:59 Insulin Human Lispro (HumaLOG INSULIN) See Protocol Table AC SC Last administered on 03/26/17 07:00; Start 03/24/17 at 17:30; Stop 04/23/17 at 17:29 Insulin Human Lispro (HumaLOG INSULIN) See Protocol Table QHS SC Last administered on 03/24/17 21:40; Start 03/24/17 at 21:00; Stop 04/23/17 at 20:59 Magnesium Hydroxide (Milk Of Magnesia) 30 ml DAILYPRN PRN PO CONSTIPATION; Start 03/24/17 at 16:30; Stop 04/23/17 at 16:29 Sertraline HCl (Zoloft) 50 mg DAILY PO Last administered on 03/26/17 08:47; Start 03/25/17 at 09:00; Stop 04/24/17 at 08:59 Trazodone HCl (Desyrel) 50 mg QHSP PRN PO INSOMNIA Last administered on 22:32; Start 03/24/17 at 16:30; Stop 04/23/17 at 16:29 Allergies Coded Allergies: No Known Drug Allergy (Verified Allergy, Unknown, 03/22/17) Ira Adams Mar 26, 2017 10:08
[2017-03-26 12:00] VITALS: BP 148/92
[2017-03-26 18:00] VITALS: BP 150/88
[2017-03-26] MEDS: traZODone 50 MG TAB PO PRN (21:42)
[2017-03-27 07:13] VITALS: BP 147/82
[2017-03-27] MEDS: HumaLOG INSULIN (NovoLOG) PER UNIT SC SCH ×2 (07:26→12:16)
[2017-03-27] MEDS: SERTRALINE HCL 50 MG TAB PO SCH (08:14)
[2017-03-27] MEDS: LEVEMIR (INSULIN DETEMIR) 1 UNITS/0.01ML SC SCH (08:14)
[2017-03-27] MEDS ORDERED: SERT50TA PO (11:31)
[2017-03-27] MEDS ORDERED: TRAZO50TA PO (11:31)
--- NOTE | 2017-03-27 18:32 | MHDSPDOC ---
[facility] Discharge Summary Discharge Summary DATE OF ADMISSION: Mar 24, 2017 at 14:48 DATE OF DISCHARGE: Mar 27, 2017 at 14:15 DISCHARGE DIAGNOSES: 1. Adjustment disorder with depressed mood 2. Rule out drug induced mood disorder REASON FOR ADMISSION: Patient overdosed on ecstasy on March 22 and while he was taking the pills and snorting ecstasy, he called his mother to tell her he was overdosing. He was taken to the emergency room and then he was sent to the ICU where he had to be intubated. Patient recovered and was transferred to the inpatient mental health unit to treat he is psychiatric disorder. Patient reported that he overdosed over a breakup with girlfriend, but this breakup took place in November, he just had not accept it or processed it. CONSULTANTS INVOLVED: None TREATMENT AND PROGRESS ON THE UNIT : Patient has a good response to treatment on Zoloft 50 mg by mouth daily and trazodone 50 mg by mouth daily at bedtime when necessary for insomnia. According to staff members he got upset with another patient yesterday and today he stated that he wanted to go home. He said he was not feeling suicidal or homicidal. He has always denied altered perceptions. Since the first day he was seen, he denies feeling suicidal. He reported that he was grateful for the new chance he was given to live after he almost on March 22. He said he will never try to hurt himself again. HOSPITAL COURSE: As above. Patient says he will never tried to kill himself again, has said that his mood is better, not feeling depressed and is willing to stay away from cigarettes and marijuana. 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 DISCHARGE ASSESSMENT: Upon discharge the patient was not suicidal, not homicidal , not delusional and didn't endorse any auditory or visual hallucinations. MENTAL STATUS EXAMINATION ON DISCHARGE: General appearance: Patient is a 26-year old male, dressed in hospital clothes, cooperative, smiling, with fair eye contact Speech: Fluent and articulate Thought processes: Intact, goal directed Thought content: Coherent Abstract reasoning and computation: Fair. Description of associations: Intact Description of abnormal or psychotic thoughts: Denies homicidal and suicidal ideation, denies auditory or visual hallucinations, denies thought delusions. Judgment: Improving Insight: Improving Orientation: Oriented 3 Recent and remote memory: Intact. Attention span and concentration: Fair. Fund of knowledge: Fair. Mood: "I'm okay" Affect: Full range, reactive, appropriate, congruent to mood MEDICATIONS ON DISCHARGE: - Zoloft 50 mg by mouth daily for depression. - Trazodone 50 mg by mouth daily at bedtime for insomnia. PLAN/FOLLOWUP ARRANGEMENTS: Patient has to follow up at the outpatient clinic. He will benefit from psychotherapy and he will have to continue with medications. The amount of time spent in the coordination of care for this patient was approximately 30 minutes. Vital Signs/I&Os Vital Signs Date Time Temp Pulse Resp B/P (MAP) Pulse Ox O2 Delivery O2 Flow Rate FiO2 03/27/17 07:13 98.4 66 16 147/82 (103) Room Air 03/24/17 16:09 93 Laboratory Data Labs 24H Laboratory Tests 2 03/26/17 21:05: Bedside Glucose (Misc Panel) 244H 03/27/17 07:20: Bedside Glucose (Misc Panel) 232H 03/27/17 12:13: Bedside Glucose (Misc Panel) 226H Medications Scheduled Insulin Detemir (Levemir) 1 Units/0.01 Ml Susp, 20 UNITS SC DAILY for 30 Days Insulin Human Lispro (Humalog) 1 Units/0.01 Ml Inj, 0 UNITS SC AC for 30 Days Sertraline Hcl (Sertraline HCl) 50 Mg Tab, 50 MG PO DAILY for MOOD, #7 Scheduled PRN Trazodone HCl (Trazodone HCl) 50 Mg Tab, 50 MG PO QHSP PRN for INSOMNIA, #7 Allergies Coded Allergies: No Known Drug Allergy (Verified Allergy, Unknown, 03/22/17) MEKA BOLIVAR MD Mar 27, 2017 18:32
== END 2017-03-27 14:15 | disposition home or self-care (01) | DRG 754 ==
LOC: M PSY 14:48
PROVIDERS: ADMIT Psychiatry & Neurology Psychiatry; ATTEND Psychiatry & Neurology Psychiatry
DX: F43.21 Adjustment disorder with depressed mood (principal); F41.9 Anxiety disorder, unspecified; Z91.5 Personal history of self-harm; Z87.891 Personal history of nicotine dependence; F12.159 Cannabis abuse with psychotic disorder, unspecified; E11.9 Type 2 diabetes mellitus without complications; Z79.4 Long term (current) use of insulin; Z79.84 Long term (current) use of oral hypoglycemic drugs

== ENCOUNTER → 2017-05-29 | Outpatient (REF) | payer MEDICAID, OTHER ==
[~2017-05-29] MED LIST changes: +SERT50TA PO; +TRAZO50TA PO
== END ==
LOC: M LAB REF 10:55 → M OUTALCOH 10:55
PROVIDERS: ATTEND Psychiatry & Neurology Psychiatry
DX: F12.90 Cannabis use, unspecified, uncomplicated (principal)

== ENCOUNTER → 2018-06-23 | Outpatient (REF) | payer OTHER ==
[2018-06-23 12:40] LABS: HEMATOCRIT 42.6 % (42.0-52.0); HEMOGLOBIN 14.9 g/dl (13.5-17.5); MEAN CORPUSCULAR VOLUME 82.9 fl (80.0-96.0); PLATELET COUNT, AUTOMATED 252 10^3/uL (150-450); RED BLOOD COUNT 5.14 10^6/uL (4.30-6.10); RED CELL DISTRIBUTION WIDTH 11.6 % (11.5-14.5); WHITE BLOOD COUNT 6.9 10^3/uL (4.0-10.0)
[2018-06-23 12:55] LABS: INR 0.97
[2018-06-23 12:56] LABS: PARTIAL THROMBOPLASTIN TIME 29.3 SECONDS (25.4-37.6)
[2018-06-23 14:02] LABS: ANION GAP 9 MEQ/L (8-16); BLOOD UREA NITROGEN 13 MG/DL (7-18); CALCIUM LEVEL 8.3 MG/DL (8.5-10.1); CARBON DIOXIDE LEVEL 24 MEQ/L (21-32); CHLORIDE LEVEL 107 MEQ/L (98-107); CREATININE FOR GFR 0.71 MG/DL (0.70-1.30); GLOMERULAR FILTRATION RATE > 60.0 (>60); GLUCOSE, FASTING 284 MG/DL (70-100); POTASSIUM SERUM 4.2 MEQ/L (3.5-5.1); SODIUM LEVEL 140 MEQ/L (136-145)
== END ==
LOC: M LABDRAW1 12:20
DX: N39.9 Disorder of urinary system, unspecified (principal); Z01.818 Encounter for other preprocedural examination

== ENCOUNTER → 2018-06-27 | Day surgery (SDC) | payer OTHER ==
[~2018-06-27] MED LIST changes: +BACITRACIN OINT 30GM As Ordered; -INSUDET SC; -INSUHUMDS SC; +LIDOCAINE 2% INJ 100 MG/5 ML SDV (FOR ANES.) As Ordered; +LR 1,000 ML IV; +MIDAZOLAM INJ 2 MG/2 ML VIAL (J2250) As Ordered; +PROPOFOL 200 MG/20 ML VIAL As Ordered; +ROCURONIUM BROMIDE 50 MG/5 ML VIAL As Ordered; -SERT50TA PO; -TRAZO50TA PO; +ceFAZolin SOD 1 GM in D5W MINI-BAG PLUS 50 ML IV; +fentaNYL 250 MCG/5 ML INJECTION (J3010) As Ordered
[2018-06-27 07:22] LABS: BEDSIDE GLUCOSE 309 MG/DL (70-105)
== END | disposition home or self-care (01) ==
LOC: M SDC 06:33
DX: N47.1 Phimosis (principal); Z53.09 Procedure and treatment not carried out because of other contraindication; R73.01 Impaired fasting glucose

== ENCOUNTER 2018-10-30 13:45 | Emergency (ER) | payer OTHER ==
[~2018-10-30] VITALS: Ht 177.8 cm; Wt 127.3 kg
[~2018-10-30 13:45] MED LIST changes: -BACITRACIN OINT 30GM As Ordered; +CLOT1CRE EXT; +INSUDET SC; +INSUHUMDS SC; -LIDOCAINE 2% INJ 100 MG/5 ML SDV (FOR ANES.) As Ordered; -LR 1,000 ML IV; +METF500T13 PO; -MIDAZOLAM INJ 2 MG/2 ML VIAL (J2250) As Ordered; -PROPOFOL 200 MG/20 ML VIAL As Ordered; -ROCURONIUM BROMIDE 50 MG/5 ML VIAL As Ordered; +SERT50TA PO; +TOUJ1.2I SC; +TRAZO50TA PO; -ceFAZolin SOD 1 GM in D5W MINI-BAG PLUS 50 ML IV; -fentaNYL 250 MCG/5 ML INJECTION (J3010) As Ordered
[2018-10-30] MEDS ORDERED: IBUPROFEN 800 MG TAB PO ONE (15:45)
--- NOTE | 2018-10-30 16:18 | REP ---
UNILATERAL RIGHT RIBS, PA CHEST: HISTORY: Fall. COMPARISON: 03/24/2017 The lungs are clear. The heart is normal in size. The pulmonary vasculature is normal in appearance. The bony structure is intact. IMPRESSION: No acute disease. Electronically Signed by Rhett Burns MD 10/30/2018 04:20 P
[2018-10-30 16:19] VITALS: BP 136/81
== END 2018-10-30 16:32 | disposition home or self-care (01) ==
LOC: M ED 13:45
DX: S20.211A Contusion of right front wall of thorax, initial encounter (principal); W00.9XXA Unspecified fall due to ice and snow, initial encounter; Y92.89 Other specified places as the place of occurrence of the external cause; Y93.9 Activity, unspecified; Y99.0 Civilian activity done for income or pay; E11.9 Type 2 diabetes mellitus without complications; F32.9 Major depressive disorder, single episode, unspecified; Z72.0 Tobacco use; Z79.899 Other long term (current) drug therapy

== ENCOUNTER 2020-10-24 16:21 | Emergency (ER) | payer OTHER ==
[~2020-10-24] VITALS: Ht 175.3 cm; Wt 120.5 kg
[~2020-10-24 16:21] MED LIST changes: -CLOT1CRE EXT; +CLOT1CRE51 EXT; +SERT-141 PO; -SERT50TA PO; +TRAZ1TAB10 PO; -TRAZO50TA PO
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
--- OUTSIDE RECORDS SUMMARY | 2020-10-24 16:25 | CCD | Continuity of Care Document ---
Author Author Jonathon SCHMIDT DO Organization Unknown Address [address], [address] [place] [address] Phone [phone] Care Team Providers Care Machine Shop Repair Technician Name Role Phone Keeley SaldañaM Problems Description No Information Available Social History Type Date Description Comments Sex Unknown ETOH Use Denies alcohol use Tobacco Use Start: Unknown End: Unknown Patient is a former smoker 1/2 PPD X 6 YRS Recreational Drug Use Regularly uses Marijuana Tobacco Use Start: Unknown Quit 2018 Allergies, Adverse Reactions, Alerts Description No Known Drug Allergies Medications Active Medications SIG Qnty Indications Ordering Provide r Date No Active Medications Unknown History Medications Bactrim DS 800-160mg Tablets 1 tab by mouth twice a day 20tabs Ronnell Schmidt DO 0 - 10/13/2020 Immunizations Description No Information Available Vital Signs Date Vital Result Comment 10/13/2020 8:33am BP Systolic 161 mmHg BP Diastolic 102 mmHg Heart Rate 89 /min Height 69 inches 5'9" Weight 265.00 lb BMI (Body Mass Index) 39.1 kg/m2 [place] Body Weight 160 lb Weight 120.204 kg BSA (Body Surface Area) 2.33 m2 07/28/2020 10:05am BP Systolic 132 mmHg BP Diastolic 56 mmHg Height 69 inches 5'9" Weight 256.12 lb BMI (Body Mass Index) 37.8 kg/m2 [place] Body Weight 160 lb Weight 116.178 kg BSA (Body Surface Area) 2.30 m2 Results Description No Information Available Procedures Date Code Description Status 07/28/2020 44460 I & D Abscess Simple Completed Medical Devices Description No Information Available Encounters Type Date Location Provider Dx Diagnosis Office Visit 07/28/2020 9:50a [facility] Ronnell Schmidt DO L72.3 Sebaceous cyst Assessments Date Code Description Provider 07/28/2020 L72.3 Sebaceous cyst Ronnell Schmidt DO Plan of Treatment 07/28/2020 - Ronnell Schmidt DO* L72.3 Sebaceous cyst* Comments:* 29y/o male with an infected sebaceous cyst in the middle of the back that has failed outpatient treatment with antibiotics. Recommendation is to do an I+D in the office today. The risks include, but are not limited to bleeding, infection, a nd recurrance of the infection. He understands, and signed consent. The area was sterilly prepped and draped with betadine. Next, 3mL 1% lidocaine was injected into the skin overlying the infected cyst. A 15 blade scalpel was then used to make a 1.5cm incision over the most fluctuant portion of the abscess. The cavity was evacuated and then irrigated with the remaining lidocaine. Finally, is was covered with 4X4 and tape. He will continue the antibiotics, and warm compresses, then see me in 4-6 weeks for possible excision of the cyst. Functional Status Description No Information Available Mental Status Description No Information Available Referrals Refer to Reason for Referral Status Appt Date Ronnell Schmidt D.O. CYST MID UP BACK Closed [address] [place] [address] [phone]
--- OUTSIDE RECORDS SUMMARY | 2020-10-24 16:25 | CCD | Continuity of Care Document ---
Author Author Jonathon SCHMIDT DO Organization Unknown Address [address] [place] [address] [address] [place] [address] Phone [phone] Care Team Providers Care Stock Speculator Name Role Phone Keeley SaldañaM [phone] Problems Description No Information Available Social History Type Date Description Comments Sex Unknown ETOH Use Denies alcohol use Tobacco Use Start: Unknown End: Unknown Patient is a former smoker 1/2 PPD X 6 YRS Recreational Drug Use Regularly uses Marijuana Tobacco Use Start: Unknown Quit 2018 Allergies, Adverse Reactions, Alerts Description No Known Drug Allergies Medications Description No Information Available Immunizations Description No Information Available Vital Signs Date Vital Result Comment 07/28/2020 10:05am BP Systolic 132 mmHg BP Diastolic 56 mmHg Height 69 inches 5'9" Weight 256.12 lb BMI (Body Mass Index) 37.8 kg/m2 [place] Body Weight 160 lb Weight 116.178 kg Results Description No Information Available Procedures Description No Information Available Medical Devices Description No Information Available Encounters Description No Information Available Assessments Date Code Description Provider 07/28/2020 L72.3 Sebaceous cyst Ronnell Schmidt DO Plan of Treatment No Information Available Functional Status Description No Information Available Mental Status Description No Information Available Referrals Refer to Reason for Referral Status Appt Date Ronnell Schmidt D.O. CYST MID UP BACK Scheduled 2019 [address] [facility] [address] [place], [place] [address] [phone]
[2020-10-24] MEDS ORDERED: MORPHINE 4 MG/ML 1ML VIAL/SYRINGE (J2270) IV PRN (17:00)
[2020-10-24] MEDS ORDERED: NS 1,000 ML IV ONE (17:00)
[2020-10-24 17:20] LABS: BASO % 0.3 % (0.0-1.0); EOS # 0.2 10^3/uL (0.0-0.5); EOS % 1.8 % (0.0-3.0); HEMATOCRIT 43.3 % (42.0-52.0); HEMOGLOBIN 14.7 g/dl (13.5-17.5); LYMPH # 2.4 10^3/uL (1.5-5.0); LYMPH % 21.7 % (24.0-44.0); MEAN CORPUSCULAR HEMOGLOBIN 28.1 pg (27.0-33.0); MEAN CORPUSCULAR HGB CONC 33.9 g/dl (32.0-36.5); MEAN CORPUSCULAR VOLUME 82.6 fl (80.0-96.0); MONO # 0.8 10^3/uL (0.0-0.8); MONO % 7.3 % (0.0-5.0); NEUTROPHILS # 7.5 10^3/uL (1.5-8.5); NEUTROPHILS % 68.5 % (36.0-66.0); PLATELET COUNT, AUTOMATED 307 10^3/uL (150-450); RED BLOOD COUNT 5.24 10^6/uL (4.30-6.10); WHITE BLOOD COUNT 10.9 10^3/uL (4.0-10.0)
[2020-10-24 17:30] LABS: BLOOD UREA NITROGEN 17 MG/DL (7-18); CALCIUM LEVEL 10.3 MG/DL (8.5-10.1); CARBON DIOXIDE LEVEL 27 MEQ/L (21-32); CHLORIDE LEVEL 100 MEQ/L (98-107); CREATININE FOR GFR 0.91 MG/DL (0.70-1.30); GLOMERULAR FILTRATION RATE > 60.0 (>60); GLUCOSE, FASTING 311 MG/DL (70-100); SODIUM LEVEL 134 MEQ/L (136-145)
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
[2020-10-24] MEDS ORDERED: ISOVUE-370 76% 100ML VIAL As Ordered ONE (17:57)
[2020-10-24 18:45] VITALS: BP 121/86
== END 2020-10-24 19:08 | disposition left against medical advice (07) ==
LOC: M ED 16:21
DX: Z04.1 Encounter for examination and observation following transport accident (principal); E11.9 Type 2 diabetes mellitus without complications; F12.20 Cannabis dependence, uncomplicated
CPT/HCPCS: 80048; 85025; 93041; 94760; 96361; 96374; 99285; J2270

== ENCOUNTER → 2020-12-11 | Outpatient (CLI) | payer OTHER | LOC: M LABSMTC 10:58 | PROVIDERS: ATTEND Anesthesiology | DX: Z01.812 Encounter for preprocedural laboratory examination (principal) ==

== ENCOUNTER 2020-12-16 08:04 | Day surgery (SDC) | payer OTHER ==
[~2020-12-16] VITALS: Ht 177.8 cm; Wt 117.7 kg
[~2020-12-16 08:04] MED LIST changes: +LR 1,000 ML IV ONE
[2020-12-16] MEDS ORDERED: LIDOCAINE 2% 100MG/5ML SDV (FOR ANES.) As Ordered ONE (08:28)
[2020-12-16] MEDS ORDERED: propofoL 200 MG/20 ML VIAL As Ordered ONE ×4 (08:28→09:34)
[2020-12-16] MEDS ORDERED: MIDAZOLAM INJ 2MG/2ML VIAL (J2250 PER 1MG) As Ordered ONE (08:29)
[2020-12-16] MEDS ORDERED: fentaNYL 100 MCG/2 ML INJECTION (J3010) As Ordered ONE (08:29)
[2020-12-16] MEDS ORDERED: HumaLOG INSULIN (NovoLOG) PER UNIT SC ONE (09:00)
[2020-12-16] MEDS ORDERED: LIDOCAINE W/EPINEPHRINE 1% 20ML VIAL As Ordered ONE (09:01)
[2020-12-16 10:50] VITALS: BP 137/85
--- NOTE | 2020-12-16 14:43 | RO ---
OPERATIVE NOTE DATE OF OPERATION: 12/16/2020 PREOPERATIVE DIAGNOSIS: Back sebaceous cyst. POSTOPERATIVE DIAGNOSIS: Back sebaceous cyst. PROCEDURE: Excision of back cyst. SURGEON: Ronnell Schmidt DO FITTER HELPER: None. ANESTHESIA: IV sedation with 10 mL of local. COMPLICATIONS: None. EBL: 5. INDICATIONS FOR PROCEDURE: The patient is a 30-year-old male who presented with an infected sebaceous cyst in his mid back; it is very large in size. Recommendation to proceed with excision in the operating room due to the size of it. Risks and benefits of the procedure not limited to but including bleeding, infection, damage to surrounding structures, need for further surgery was discussed in detail with the patient and informed consent was obtained, procedure was planned. DESCRIPTION OF PROCEDURE: The patient was brought back to operating room 1, after sedation he was placed in the right lateral decubitus position. The back was sterilely prepped and draped with Chlorhexidine. Time out was done confirming proper patient and proper procedure. Following that local was injected into the skin and subcutaneous tissues surrounding the large lesion. A 7 cm elliptical incision was then created and the sebaceous cyst was dissected free using combination of blunt and sharp dissection. Once the cyst was completely removed it measured 7 cm in diameter, the wound bed was then irrigated. The skin was undermined in all directions for about 2 cm to allow for closure. The skin was then closed with interrupted 2-0 nylon sutures. Once that was completed the area was cleaned and dried. 4 x 4 tape applied. This ended the procedure.
[2020-12-16] MEDS ORDERED: HumaLOG INSULIN (NovoLOG) PER UNIT SC SCH (21:00)
== END 2020-12-16 10:58 | disposition home or self-care (01) ==
LOC: M SDC 08:04
PROVIDERS: ATTEND Surgery
DX: L72.3 Sebaceous cyst (principal); F41.9 Anxiety disorder, unspecified; F32.9 Major depressive disorder, single episode, unspecified; F17.290 Nicotine dependence, other tobacco product, uncomplicated; F12.10 Cannabis abuse, uncomplicated; E11.9 Type 2 diabetes mellitus without complications
CPT/HCPCS: 11406; 88304; J2250; J3010

== ENCOUNTER → 2021-07-05 | Outpatient (REF) | payer OTHER ==
[~2021-07-05] MED LIST changes: -LR 1,000 ML IV ONE
[2021-07-05 17:55] LABS: BASO # 0.1 10^3/uL (0.0-0.2); BASO % 0.4 % (0.0-1.0); EOS # 0.2 10^3/uL (0.0-0.5); EOS % 1.9 % (0.0-3.0); HEMOGLOBIN 15.8 g/dl (13.5-17.5); LYMPH # 2.9 10^3/uL (1.5-5.0); LYMPH % 23.9 % (24.0-44.0); MEAN CORPUSCULAR HEMOGLOBIN 29.4 pg (27.0-33.0); MEAN CORPUSCULAR HGB CONC 35.1 g/dl (32.0-36.5); MEAN CORPUSCULAR VOLUME 83.6 fl (80.0-96.0); MONO # 0.9 10^3/uL (0.0-0.8); MONO % 7.5 % (2.0-8.0); NEUTROPHILS # 8.1 10^3/uL (1.5-8.5); NEUTROPHILS % 65.9 % (36.0-66.0); PLATELET COUNT, AUTOMATED 352 10^3/uL (150-450); RED BLOOD COUNT 5.38 10^6/uL (4.30-6.10); WHITE BLOOD COUNT 12.3 10^3/uL (4.0-10.0)
[2021-07-05 18:13] LABS: HEMOGLOBIN A1c 9.8 %
[2021-07-05 18:35] LABS: ALBUMIN 4.1 GM/DL (3.2-5.2); ALT/SGPT 31 U/L (12-78); BILIRUBIN,TOTAL 0.5 MG/DL (0.2-1.0); BLOOD UREA NITROGEN 17 MG/DL (7-18); CALCIUM LEVEL 10.8 MG/DL (8.5-10.1); CARBON DIOXIDE LEVEL 29 MEQ/L (21-32); CHLORIDE LEVEL 101 MEQ/L (98-107); CREATININE FOR GFR 0.87 MG/DL (0.70-1.30); FREE T4 0.91 NG/DL (0.76-1.46); GLOMERULAR FILTRATION RATE > 60.0 (>60); GLUCOSE, FASTING 243 MG/DL (70-100); POTASSIUM SERUM 4.8 MEQ/L (3.5-5.1); SODIUM LEVEL 135 MEQ/L (136-145); THYROID STIMULATING HORMONE 0.947 uIU/ML (0.358-3.740); TOTAL PROTEIN 8.4 GM/DL (6.4-8.2)
== END ==
LOC: M SFHCADAM 15:58
PROVIDERS: ATTEND Family Medicine
DX: F32.9 Major depressive disorder, single episode, unspecified (principal); E11.69 Type 2 diabetes mellitus with other specified complication; E66.9 Obesity, unspecified

== ENCOUNTER 2023-04-19 17:55 | Emergency (ER) | payer MEDICAID, OTHER ==
[~2023-04-19] VITALS: Ht 177.8 cm; Wt 113.0 kg
[2023-04-19 17:58] VITALS: BP 136/70; TEMP 98; O2SAT 99
[2023-04-19] MEDS ORDERED: GABA-283 PO (18:11)
[2023-04-19] MEDS ORDERED: METH4TAB8 PO (18:11)
[2023-04-19 18:39] LABS: BASO % 0.4 % (0.0-1.0); EOS # 0.1 10^3/uL (0.0-0.5); EOS % 0.5 % (0.0-3.0); HEMATOCRIT 39.5 % (42.0-52.0); HEMOGLOBIN 13.8 g/dl (13.5-17.5); LYMPH % 10.1 % (24.0-44.0); MEAN CORPUSCULAR HEMOGLOBIN 29.9 pg (27.0-33.0); MEAN CORPUSCULAR HGB CONC 34.9 g/dl (32.0-36.5); MEAN CORPUSCULAR VOLUME 85.5 fl (80.0-96.0); MONO # 0.3 10^3/uL (0.0-0.8); MONO % 3.3 % (2.0-8.0); NEUTROPHILS # 8.6 10^3/uL (1.5-8.5); NEUTROPHILS % 85.2 % (36.0-66.0); PLATELET COUNT, AUTOMATED 325 10^3/uL (150-450); RED BLOOD COUNT 4.62 10^6/uL (4.30-6.10); WHITE BLOOD COUNT 10.1 10^3/uL (4.0-10.0)
[2023-04-19 19:09] LABS: BLOOD UREA NITROGEN 21 MG/DL (9-23); CALCIUM LEVEL 10.7 MG/DL (8.5-10.1); CARBON DIOXIDE LEVEL 24 MMOL/L (20-31); CHLORIDE LEVEL 104 MMOL/L (98-107); CREATININE FOR GFR 0.92 MG/DL (0.70-1.30); GLOMERULAR FILTRATION RATE > 60.0 (>60); GLUCOSE, FASTING 276 MG/DL (60-100); POTASSIUM SERUM 4.9 MMOL/L (3.5-5.1); SODIUM LEVEL 137 MMOL/L (136-145)
[2023-04-19 20:58] LABS: GC DNA AMPLIFICATION NEGATIVE (NEGATIVE)
== END 2023-04-19 22:30 | disposition left against medical advice (07) ==
LOC: M ED 17:55
DX: R31.9 Hematuria, unspecified (principal); Z53.21 Procedure and treatment not carried out due to patient leaving prior to being seen by health care provider

== ENCOUNTER → 2024-12-29 | Outpatient (REF) | payer OTHER ==
[~2024-12-29] MED LIST changes: +GABA-284 PO; +METH4TAB8 PO
[2024-12-30 16:45] LABS: CREATININE, URINE 68.2 MG/DL; MAU/CREAT RATIO 988.2 MCG/MG (0.0-30.0)
== END ==
LOC: M SFHCADAM 16:01
PROVIDERS: ATTEND Family Medicine
DX: E11.65 Type 2 diabetes mellitus with hyperglycemia (principal)

== ENCOUNTER → 2025-01-08 | Outpatient (CLI) | payer OTHER ==
[2025-01-08 10:48] LABS: BASO % 0.3 % (0.0-1.0); EOS # 0.2 10^3/uL (0.0-0.5); EOS % 1.9 % (0.0-3.0); HEMATOCRIT 41.6 % (42.0-52.0); HEMOGLOBIN 14.1 g/dl (13.5-17.5); LYMPH # 2.4 10^3/uL (1.5-5.0); LYMPH % 20.1 % (24.0-44.0); MEAN CORPUSCULAR HEMOGLOBIN 29.1 pg (27.0-33.0); MEAN CORPUSCULAR HGB CONC 33.9 g/dl (32.0-36.5); MEAN CORPUSCULAR VOLUME 85.8 fl (80.0-96.0); MONO # 0.8 10^3/uL (0.0-0.8); MONO % 6.9 % (2.0-8.0); NEUTROPHILS # 8.4 10^3/uL (1.5-8.5); NEUTROPHILS % 70.5 % (36.0-66.0); PLATELET COUNT, AUTOMATED 314 10^3/uL (150-450); RED BLOOD COUNT 4.85 10^6/uL (4.30-6.10); WHITE BLOOD COUNT 11.9 10^3/uL (4.0-10.0)
[2025-01-08 11:15] LABS: ALBUMIN 3.6 G/DL (3.2-5.2); ALKALINE PHOSPHATASE 55 U/L (40-129); ALT/SGPT 25 U/L (7.0-40); AST/SGOT 13 U/L (<34); BILIRUBIN,TOTAL 0.4 MG/DL (0.3-1.2); BLOOD UREA NITROGEN 14 MG/DL (9-23); CALCIUM LEVEL 10.2 MG/DL (8.5-10.1); CARBON DIOXIDE LEVEL 26 MMOL/L (20-31); CHLORIDE LEVEL 103 MMOL/L (98-107); CHOLESTEROL LEVEL 277 MG/DL (<200); CHOLESTEROL RISK RATIO 6.72 (<5); CREATININE FOR GFR 0.91 MG/DL (0.70-1.30); GLOMERULAR FILTRATION RATE > 90.0 (>60); GLUCOSE, FASTING 234 MG/DL (60-100); HDL CHOLESTEROL 41.2 MG/DL (>40); LDL CHOLESTEROL 169.4 MG/DL (<100); NON-HDL-C 235.8 MG/DL; POTASSIUM SERUM 4.5 MMOL/L (3.5-5.1); SODIUM LEVEL 137 MMOL/L (136-145); THYROID STIMULATING HORMONE 0.972 uIU/ML (0.55-4.78); TRIGLYCERIDES LEVEL 332 MG/DL (<150)
[2025-01-08 11:59] LABS: SEMEN APPEARANCE OPAQUE (OPAQUE); SEMEN VISCOSITY LIQUID (LIQUID); SPERM CONCENTRATION 5.9 M/ml (>=15.0); WBC CONCENTRATION <=1 M/ml (<=1 M/ml)
[2025-01-08 12:00] LABS: TOTAL PROGRESSIVE SPERM 0.1 M/Ejac.
== END ==
LOC: M PLALAB 09:06
PROVIDERS: ATTEND Family Medicine
DX: Z00.00 Encounter for general adult medical examination without abnormal findings (principal)